=== PATIENT | female | born 1980 | race Caucasian/White ===

== ENCOUNTER 2020-11-03 12:54 | Outpatient (CLI) | payer BC ==
[~2020-11-03 12:54] MED LIST: REGADENOSON 0.4 MG/5 ML SYRINGE ONE
== END 2020-11-04 23:59 | disposition home or self-care (01) ==
LOC: CFH 12:54
PROVIDERS: ATTEND Internal Medicine Cardiovascular Disease
DX: Z01.810 Encounter for preprocedural cardiovascular examination (principal); I11.9 Hypertensive heart disease without heart failure; I36.1 Nonrheumatic tricuspid (valve) insufficiency
CPT/HCPCS: 78452; 93017; A9502; C8929; J2785; Q9957